=== PATIENT | male | born 1990 | race Caucasian/White ===

== ENCOUNTER → 2019-06-05 10:07 | Outpatient (CLI) | payer SELFPAY ==
[2019-06-06 09:53] LABS: HSV 1 IgG < 0.91 index (0.00-0.90); HSV 2 IgG < 0.91 index (0.00-0.90)
[2019-06-09 01:45] LABS: Rapid Plasmin Reagin (RPR) NONREACTIVE (NONREACTIVE)
== END ==
PROVIDERS: Family Provider Family Medicine; PCP Family Medicine; Visit Provider Family Medicine
DX: L30.9 Dermatitis, unspecified (principal); R21 Rash and other nonspecific skin eruption
CPT/HCPCS: 36415; 86592; 86695; 86696